=== PATIENT | female | born 1985 | race Caucasian/White ===

== ENCOUNTER 2017-03-09 06:33 | Emergency (ER) | payer MEDICAID ==
[~2017-03-09] VITALS: Ht 165.1 cm; Wt 61.4 kg
[2017-03-09] MEDS ORDERED: ELIMITE TOP (07:05)
[2017-03-09 07:28] VITALS: BP 124/83; PULSE 75; TEMP 98.1
== END 2017-03-09 07:28 | disposition home or self-care (01) ==
LOC: COL.ER 06:33
DX: R21 Rash and other nonspecific skin eruption (principal)

== ENCOUNTER 2017-03-10 19:08 | Emergency (ER) | payer MEDICAID ==
[~2017-03-10] VITALS: Ht 165.1 cm; Wt 61.4 kg
[~2017-03-10 19:08] MED LIST: ELIMITE TOP
[2017-03-10 19:14] VITALS: BP 114/77; PULSE 80; TEMP 98
== END 2017-03-10 19:55 | disposition home or self-care (01) ==
LOC: COL.ER 19:08
DX: L50.9 Urticaria, unspecified (principal)

== ENCOUNTER 2017-04-11 15:20 | Emergency (ER) | payer MEDICAID ==
[~2017-04-11] VITALS: Ht 165.1 cm; Wt 61.4 kg
[2017-04-11 15:21] VITALS: TEMP 98.1
[2017-04-11 16:15] LABS: BASO % 0.5 % (0.0-2.0); EOS # 0.1 (0.0-0.7); EOS % 1.6 % (0-4.0); GRAN # 5.8 (1.4-6.5); GRAN % 69.4 % (42.2-75.2); HEMOGLOBIN 16.6 g/dl (12.5-16.0); LYMPH # 1.9 (1.2-3.4); MEAN CELL VOLUME 84 fl (80.0-100.0); MEAN CORPUSCULAR HEMOGLOBIN 29 pg (27.0-31.0); MEAN CORPUSCULAR HGB CONC 35 g/dl (33.0-37.0); MEAN PLATELET VOLUME 9.2 fl (7.4-10.4); MONO # 0.4 (0.1-0.6); MONO % 5.3 % (1.7-9.3); PLATELET COUNT 396 K/mm3 (130-400); REDCELL DISTRIBUTION WIDTH-CV 11.8 % (11.5-14.5); WHITE BLOOD COUNT 8.3 K/mm3 (4.8-10.8)
[2017-04-11 16:21] LABS: ADJUSTED CALCIUM 9.5 mg/dL (8.4-10.2); ALANINE AMINOTRANSFERASE 18 U/L (9-52); ALBUMIN 4.6 gm/dL (3.5-5.0); ALKALINE PHOSPHATASE 60 U/L (50-136); ANION GAP 13 mmol/L (7-16); BILIRUBIN,TOTAL 0.6 mg/dL (0.0-1.0); BLOOD UREA NITROGEN 15 mg/dL (7-17); CARBON DIOXIDE 24 mmol/L (22-30); CHLORIDE 106 mmol/L (98-107); CREATININE, serum 0.81 mg/dL (0.52-1.25); GLUCOSE 95 mg/dL (74-106); LIPASE 85 U/L (23-300); POTASSIUM 3.9 mmol/L (3.4-5.0); SODIUM 143 mmol/L (137-145); TOTAL PROTEIN 7.5 gm/dL (6.4-8.2)
[2017-04-11 16:23] LABS: C-REACTIVE PROTEIN < 0.5 mg/dL (0.0-0.9)
[2017-04-11 16:27] LABS: PH 8 (5-8); SQUAMOUS EPITHELIAL 0-2 /hpf; URINE APPEARANCE Hazy; URINE BACTERIA Rare /hpf; URINE BILIRUBIN Negative (NEGATIVE); URINE BLOOD Negative (NEGATIVE); URINE COLOR Yellow; URINE GLUCOSE Negative (NEGATIVE); URINE KETONE Negative (NEGATIVE); URINE UROBILINOGEN Negative (NEGATIVE)
[2017-04-11] MEDS ORDERED: NORCO 325 MG-51 TAB PO (17:47)
[2017-04-11 18:00] VITALS: BP 134/93; PULSE 65
[2017-04-11 18:47] LABS: CHLAMYDIA/TRACH by PCR Female NOT DETECTED; NEISSERIA GON by PCR Female NOT DETECTED
== END 2017-04-11 18:03 | disposition home or self-care (01) ==
LOC: COL.ER 15:20
PROVIDERS: Emergency Medicine
DX: R10.32 Left lower quadrant pain (principal); F17.210 Nicotine dependence, cigarettes, uncomplicated
CPT/HCPCS: J2270; J2405; J7030; Q9967